=== PATIENT | male | born 1990 ===

== ENCOUNTER 2023-01-24 11:04 | Emergency (ER) | payer SELFPAY | END 2023-01-24 12:25 | disposition home or self-care (01) | LOC: JP.ED 11:04 | DX: J30.1 Allergic rhinitis due to pollen (principal); J30.2 Other seasonal allergic rhinitis; J02.9 Acute pharyngitis, unspecified; F17.210 Nicotine dependence, cigarettes, uncomplicated; Z20.822 Contact with and (suspected) exposure to COVID-19 | CPT/HCPCS: 87081; 87880-QW; 99283 ==